=== PATIENT | female | born 1950 | race Two or more races ===

== ENCOUNTER 2016-09-11 00:42 | Inpatient (IN) | payer MEDICARE, OTHER ==
[~2016-09-11] VITALS: Ht 149.9 cm; Wt 65.3 kg
[2016-09-11 04:20] VITALS: BP 124/71
--- NOTE | 2016-09-11 04:20 | NUR ---
RN NOTES RECEIVED PATIENT FROM [facility] FOR DX ACUTE CHOLECYSTITIS. AO X 3, ABLE TO MAKE NEEDS KNOWN. NO ACUTE DISTRESS NOTED. DENIES ANY PAIN AT THIS TIME. DENIES ABDOMINAL PAIN. IV SITE PATENT, INTACT; FLUSHED. SKIN INTACT. ON LOW BED WITH BILATERAL UPPER SIDE RAILS UP. CALL LIGHT WITHIN EASY REACH. WILL CONTINUE TO MONITOR. WAITING FOR ORDERS FROM .
[2016-09-11] MEDS ORDERED: HUM10VIA SQ (04:35)
[2016-09-11] MEDS ORDERED: BENA40TA2 PO (04:35)
[2016-09-11] MEDS ORDERED: METF10002 PO (04:35)
[2016-09-11] MEDS ORDERED: ATOR40TA PO (04:35)
[2016-09-11] MEDS ORDERED: IBUP-1482 PO (04:35)
[2016-09-11] MEDS ORDERED: ASPI81TA2 PO (04:35)
[2016-09-11] MEDS ORDERED: CALC-20 PO (04:35)
[2016-09-11] MEDS ORDERED: IBUP-1955 PO (04:36)
[2016-09-11] MEDS ORDERED: MAG HYDROX/AL HYDROX/SIMETH 30 ML UDC PO PRN (05:00)
[2016-09-11] MEDS ORDERED: HYDROCODONE/APAP 5/325MG 1 EACH TABLET PO PRN (05:00)
[2016-09-11] MEDS ORDERED: ZOLPIDEM TARTRATE 5 MG TABLET PO PRN (05:00)
[2016-09-11] MEDS ORDERED: MAGNESIUM HYDROXIDE 30 ML UDC PO PRN (05:00)
[2016-09-11] MEDS ORDERED: Z GUARD REMEDY 2 OZ OINT TP PRN (05:00)
[2016-09-11] MEDS ORDERED: ACETAMINOPHEN 325 MG TABLET PO PRN (05:00)
[2016-09-11] MEDS ORDERED: IV D5W 50 ML IV ONE (05:27)
[2016-09-11] MEDS ORDERED: PIPERACILLIN /TAZOBACTAM 3.375 G VIAL IV ONE (05:27)
[2016-09-11] MEDS ORDERED: IV SET PRIMARY PUMP SET 1 EA INFUS.SET MC ONE (05:51)
[2016-09-11] MEDS ORDERED: IV D5/0.45 NACL 1,000 ML IV ONE (05:52)
[2016-09-11] MEDS ORDERED: SECONDARY IV SET 1 EA INFUS.SET MC ONE ×3 (05:52→13:22)
[2016-09-11] MEDS: IV D5/0.45 NACL 1,000 ML IV PRN (06:00)
[2016-09-11] MEDS: PIPERACILLIN /TAZOBACTAM 3.375 G in IV D5W 50 ML IV SCH ×4 (06:10→23:59)
[2016-09-11 06:40] LABS: BASOPHILS % (AUTO) 0.2 % (0.0-2.0); EOSINOPHILS # (AUTO) 0.1 /CMM (0.0-0.7); EOSINOPHILS % (AUTO) 1.4 % (0.0-6.0); HEMATOCRIT 33 % (33-45); HEMOGLOBIN 11.5 g/dL (11.5-14.8); LYMPHOCYTES # (AUTO) 1.6 /CMM (0.8-4.8); LYMPHOCYTES % (AUTO) 17.8 % (20.0-44.0); MEAN CORPUSCULAR HEMOGLOBIN 31 PG (26.0-33.0); MEAN CORPUSCULAR HGB CONC 35 g/dl (31.0-36.0); MEAN CORPUSCULAR VOLUME 88 fL (82-100); MONOCYTES % (AUTO) 11.1 % (2.0-12.0); NEUTROPHILS # (AUTO) 6.3 /CMM (1.8-8.9); NEUTROPHILS % (AUTO) 69.5 % (43.0-81.0); PLATELET COUNT (AUTO) 242 /CMM (150-450); RDW COEFFICIENT OF VARIATION 13.5 (11.5-15.0); RED BLOOD CELL COUNT(AUTO) 3.76 MIL/uL (4.0-5.2); WHITE BLOOD COUNT (AUTO) 9.1 K/uL (4.3-11.0)
--- NOTE | 2016-09-11 06:50 | NUR ---
RN NOTES PATIENT ASLEEP, AROUSABLE. RESPIRATIONS EVEN. NO SIGNS OF PAIN NOTED. DUE MEDS GIVEN WITH NO ASE NOTED. NEEDS ATTENDED. SAFETY PRECAUTIONS AND COMFORT MEASURES IN PLACE. WILL GIVE REPORT TO DAY SHIFT FOR CONTINUITY OF CARE.
[2016-09-11 07:09] LABS: BILIRUBIN,TOTAL 0.4 mg/dL (0.2-1.0); CALCIUM, SERUM 8.1 mg/dL (8.5-10.1); CREATININE 0.5 mg/dL (0.6-1.3); MAGNESIUM 1.9 mg/dL (1.8-2.4); PHOSPHORUS 3.6 mg/dL (2.5-4.9); POTASSIUM 3.4 mmol/L (3.5-5.1); TOTAL PROTEIN, SERUM 6.7 g/dL (6.4-8.2)
--- NOTE | 2016-09-11 07:30 | NUR ---
RN MS NOTES RECEIVED PATIENT IN BED, A/OX4, VERBALLY RESPONSIVE, NO APPARENT DISTRESS NOTED, DENIES SOB, DENIES PAIN. ON 2L O2 VIA NC SATURATING AT 99%. PATIENT IS NPO DUE TO DIAGNOSIS OF CHOLECYSTITS AND POSSIBLE SURGERY. IV LINE ON RIGHT AC PATENT. ALL NEEDS MET, CALL LIGHT WITHIN REACH.
[2016-09-11 08:00] VITALS: BP_SYST 131; BP_SYST 87; BP_DIAS 41; BP_DIAS 75
[2016-09-11] MEDS ORDERED: IBUPROFEN 600 MG TABLET PO PRN (09:00)
[2016-09-11] MEDS ORDERED: ATORVASTATIN 40 MG TABLET PO SCH (09:00)
[2016-09-11] MEDS: CALCIUM CARB 600MG /VIT D 1 EACH TABLET PO SCH (09:00)
[2016-09-11] MEDS: ASPIRIN 81 MG TAB.CHEW PO SCH (09:00)
[2016-09-11] MEDS ORDERED: DEXTROSE 50%-WATER 50 ML DISP.SYRIN IV PRN (09:00)
[2016-09-11] MEDS: BLOOD SUGAR DIAGNOSTIC 1 EACH STRIP IN SCH ×4 (09:41→22:21)
[2016-09-11] MEDS: BENAZEPRIL HCL 20 MG TABLET PO SCH (09:45)
[2016-09-11] MEDS: POTASSIUM CL. PREMIX PERIPHER. 50 ML IV SCH ×2 (09:58→11:25)
[2016-09-11] MEDS: PANTOPRAZOLE 40 MG VIAL IV SCH (09:58)
[2016-09-11] MEDS: MORPHINE SULFATE INJ 2 MG/ML DISP.SYRIN IV PRN ×2 (09:59→17:42)
--- NOTE | 2016-09-11 14:41 | NUR ---
RN MS NOTES PT IN BED, SEEN AND EXAMINED BY DR. CHOWDHURY, PLAN OF CARE DISCUSSED WITH PT AND DAUGHTER DOMITILA AT BEDSIDE, OPTIONS DISCUSSED WITH PT, PT STATED THAT SHE WOULD LIKE TO AVOID SURGERY FOR NOW, PER MD, WILL CONTINUE WITH ATB AND PAIN MANAGEMENT, KEEP PT NPO, PT AND DAUGHTER VERBALIZED UNDERSTANDING OF PLAN OF CARE.
[2016-09-11 16:27] VITALS: BP 83/48
[2016-09-11] MEDS: METFORMIN 500 MG TABLET PO SCH (17:00)
[2016-09-11] MEDS: INSULIN NPH/REG 70/30 MIX INJ 100 UNIT/ML VIAL SQ SCH (17:30)
--- NOTE | 2016-09-11 19:00 | NUR ---
RN MS NOTES PATIENT A/O X4, NO APPARENT DISTRESS, DENIES SOB, DENIES PAIN. IV LINE ON RIGHT AC PATENT, PATIENT NPO. ALL DUE MEDS GIVE, ALL NEEDS ATTENDED TO. WILL ENDORSE CARE TO PM SHIFT.
[2016-09-11 20:00] VITALS: BP 135/71
--- NOTE | 2016-09-11 20:00 | NUR ---
MS SEARCH ANALYST INITIAL NOTES SEEN PT IN BED AWAKE AND ALERT WITH FAMILY AT THE BEDSIDE, WITH IVF OF D51/2 NS AT 75ML/HR ON HER RIGHT AC PATENT AND INTACT. GUINEAN SPEAKING ONLY SO SON HELPED TO TRANSLATE, COMPLAINING OF N/V . SPOKE TO THEM THAT ANOTHER NURSE WILL ADMINISTER HER MEDS AND PT UNDERSTOOD WELL. DENIES ANY PAIN OR ANY DISCOMFORT AT THIS TIME. ENCOURAGE HER TO USED THE CALL LIGHT SYSTEM IF SHE NEEDS SOME HELP. KEPT HER WARM AND COMFORTABLE AT ALL TIMES. PLACE CALL LIGHT AT REACH. WILL CONTINUE TO MONITOR.
[2016-09-11] MEDS: ONDANSETRON HCL/PF 4 MG/2 ML VIAL IVP PRN (20:16)
[2016-09-11] MEDS: ATORVASTATIN 40 MG TABLET PO SCH (22:00)
--- NOTE | 2016-09-12 01:43 | NUR ---
MS CHERELLE NOTES C/O RIGHT UPPER QUADRANT PAIN , MORPHINE 2 MG GIVEN BY ANOTHER NURSE ROSANNA/RN ORDERED. WILL CONTINUE TO MONITOR. PLACE CALL LIGHT AT REACH.
[2016-09-12] MEDS: IV D5/0.45 NACL 1,000 ML IV PRN ×2 (01:48→16:42)
[2016-09-12] MEDS: MORPHINE SULFATE INJ 2 MG/ML DISP.SYRIN IV PRN ×3 (01:53→22:29)
--- NOTE | 2016-09-12 02:23 | NUR ---
MS SUPERINTENDENT CUSTODIAN JANITOR RE-ASSESSMENT NOTES CHECKED PT SLEEPING AT THIS TIME BUT AROUSES TO TOUCH, STATED BETTER. IVF STILL INFUSING AT THIS TIME. KEPT HER WARM AND COMFORTABLE AT ALL TIMES. PLACE CALL LIGHT AT REACH.
[2016-09-12] MEDS: PIPERACILLIN /TAZOBACTAM 3.375 G in IV D5W 50 ML IV SCH ×3 (05:23→17:07)
[2016-09-12] MEDS: BLOOD SUGAR DIAGNOSTIC 1 EACH STRIP IN SCH ×4 (06:22→22:17)
[2016-09-12] MEDS: INSULIN REGULAR, HUMAN 100 UNIT/ML 3 ML VIAL SQ PRN ×3 (06:25→22:18)
--- NOTE | 2016-09-12 07:05 | NUR ---
MS RN NOTE: RECEIVED PATIENT WHILE RESTING IN BED, A/OX 3. BREATHING EVEN AND UNLABORED ON 2L O2 VIA NC. NO DISTRESS/DISCOMFORT AT THIS TIME. PATIENT REMAINS NPO. ALL NEEDS ATTENDED TO, SAFETY MEASURES IN PLACE, WILL CONTINUE TO MONITOR.
[2016-09-12] MEDS: INSULIN NPH/REG 70/30 MIX INJ 100 UNIT/ML VIAL SQ SCH ×2 (07:30→16:46)
--- NOTE | 2016-09-12 07:30 | NUR ---
INSTRUMENT ROOM TECHNICIAN/CLOSING NOTES PT RESTING AFTER MORNING CARE DONE. BLOOD SUGAR CHECKED DONE ALSO. 198, 3 UNITS OF INSULIN GIVEN. NO SIGNS OF HYPER GLYCEMIA NOTED. ALL DUE MEDS GIVEN AND ALL NEEDS MET. SLEPT WELL AND ALL NEEDS MET. KEPT HER WARM AND COMFORTABLE AT ALL TIMES. PLACE CALL LIGHT AT REACH. ENDORSE TO AM NURSE MADDEN FOR CONTINUITY OF CARE.
[2016-09-12 08:00] VITALS: BP 136/71
[2016-09-12] MEDS: PANTOPRAZOLE 40 MG VIAL IV SCH (08:29)
[2016-09-12] MEDS: CALCIUM CARB 600MG /VIT D 1 EACH TABLET PO SCH (08:56)
[2016-09-12] MEDS: ASPIRIN 81 MG TAB.CHEW PO SCH (08:56)
[2016-09-12] MEDS: BENAZEPRIL HCL 20 MG TABLET PO SCH (08:56)
[2016-09-12] MEDS: METFORMIN 500 MG TABLET PO SCH ×2 (08:56→16:23)
--- NOTE | 2016-09-12 10:40 | NUR ---
MRI QUESTIONNAIRE COMPLETED, PATIENT SIGNED, AND PLACED IN CHART.
[2016-09-12] MEDS ORDERED: GADOVERSETAMIDE 5 MMOL/10 ML VIAL IJ ONE (12:01)
[2016-09-12] MEDS ORDERED: GADOVERSETAMIDE 2.5 MMOL/5 ML VIAL IJ ONE (12:01)
--- NOTE | 2016-09-12 12:26 | NUR ---
MRCP APPROVED, TECH WILL BE 30MIN. ORDER WILL TO MRI ABD W/WO INCLUDE MRCP.
--- NOTE | 2016-09-12 13:45 | NUR ---
PATIENT TRANSPORTED TO [facility] VIA WHEELCHAIR. PATIENT REMAINS STABLE, WILL CONTINUE TO MONITOR UPON RETURN.
--- NOTE | 2016-09-12 14:30 | NUR ---
MS RN NOTE: PATIENT RETURNED FROM [facility]. REMAINS STABLE, WILL CONTINUE TO MONITOR.
[2016-09-12 16:00] VITALS: BP 150/69
--- NOTE | 2016-09-12 16:30 | NUR ---
MS RN NOTE SURGEON, DR. JAUREGUI, CONSULTED WITH PATIENT. WILL AWAIT FURTHER ORDERS.
--- NOTE | 2016-09-12 17:00 | NUR ---
MS RN NOTE: BLOOD SUGAR CHECKED, READING 126. NO INSULIN COVERAGE REQUIRED. PATIENT STABLE, WILL CONTINUE TO MONITOR.
--- NOTE | 2016-09-12 18:12 | NUR ---
MS RN NOTE: PATIENT EXPLAINED SURGERY/PROCEDURE THAT IS SCHEDULED FOR TOMORROW. TRANSLATED IN [facility]. PATIENT HAS AGREED TO SURGERY AND SIGNED ALL CONSENT FORMS. SURGERY PACKET PLACED IN CHART, WILL CONTINUE TO MONITOR.
--- NOTE | 2016-09-12 18:30 | NUR ---
MS RN NOTE: PATIENT RESTING IN BED, A/OX 4. BREATHING EVEN AND UNLABORED ON ROOM AIR. NO SOB, NO DISTRESS AT THIS TIME. PATIENTS NEEDS ATTENDED TO, SAFETY MEASURES IN PLACE, WILL ENDORSE TO INFORMATICS EDUCATOR FOR CHRISSIE.
[2016-09-12 19:13] LABS: INR 0.94 (0.87-1.13)
[2016-09-12 19:53] LABS: APPEARANCE,URINE CLEAR (CLEAR); BILIRUBIN,URINE NEGATIVE (NEGATIVE); BLOOD, URINE TRACE-INTA Ery/uL (NEGATIVE); COLOR,URINE YELLOW (YELLOW); KETONES,URINE TRACE (NEGATIVE); LEUKOCYTE ESTERASE ,URINE NEGATIVE (NEGATIVE); NITRITE, URINE NEGATIVE (NEGATIVE); PH,URINE 6.5 (5.0-8.0); PROTEIN,URINE NEGATIVE (NEGATIVE); UGLUCOSE NEGATIVE (NEGATIVE); UROBILINOGEN,URINE 0.2 EU/dL (0.2)
[2016-09-12 20:00] VITALS: BP 139/73
[2016-09-12 20:03] LABS: BACTERIA,URINE Rare /HPF (None Seen); SQUAMOUS EPITHELIAL CELL,UR Few /HPF (None Seen); WBC,URINE 0-2 /HPF (0-3)
[2016-09-12] MEDS: ATORVASTATIN 40 MG TABLET PO SCH (21:42)
--- NOTE | 2016-09-12 22:17 | NUR ---
INBOUND SALES REPRESENTATIVE/NOTES' BLOOD SUGAR CHECKED DONE 191, 3 UNITS OF INSULIN GIVEN MANJULA SQ ORDERED. PT NPO AT THIS TIME BUT HAVE IVF OF D5 1/2 NS AT 75ML/HR. NO SIGNS OF HYPER GLYCEMIA NOTED. KEPT HER WARM AND COMFORTABLE AT ALL TIMES. WILL CONTINUE TO MONITOR. P ALSO ASKING FOR HER PAIN MEDS. I TOLD HER THAT ANOTHER NURSE WILL ADMINISTER. AND PT SAID "OK'.
--- NOTE | 2016-09-12 22:32 | NUR ---
MORPHINE 2MG GIVEN ORDERED FOR C/O SEVERE LOWER ABD PAIN. WILL CONT TO MONITOR
[2016-09-13] MEDS: PIPERACILLIN /TAZOBACTAM 3.375 G in IV D5W 50 ML IV SCH ×4 (00:15→17:04)
[2016-09-13] MEDS: BLOOD SUGAR DIAGNOSTIC 1 EACH STRIP IN SCH ×4 (06:06→21:20)
[2016-09-13] MEDS: INSULIN REGULAR, HUMAN 100 UNIT/ML 3 ML VIAL SQ PRN ×4 (06:08→21:16)
--- NOTE | 2016-09-13 07:00 | NUR ---
FREIGHT FLAGMAN/CLOSING NOTES BLOOD SUGAR CHECKED DONE, 203, 4 UNITS OF INSULIN GIVEN MANJULA SQ ORDERED, VITAL SIGNS STABLE. CHECKLIST DONE AND PT AWARE OF HER SURGERY. STABLE MANJULA THE NIGHT AND SLEPT WELL. ALL DUE MEDS GIVEN AND ALL NEEDS MET. KEPT HER WARM AND COMFORTABLE AT ALL TIMES. ENDORSE TO AM NURSE.
--- NOTE | 2016-09-13 07:05 | NUR ---
MS RN NOTE: RECEIVED PATIENT WHILE RESTING IN BED, A/OX 4. PATIENT BREATHING EVEN AND UNLABORED ON ROOM AIR. NO SOB, NO DISTRESS. PATIENT NPO FOR SURGERY THIS MORNING. CONSENTS IN PLACE, CHECKLIST COMPLETE. PATIENTS NEEDS ATTENDED TO, SAFETY MEASURES IN PLACE, WILL CONTINUE TO MONITOR.
[2016-09-13] MEDS ORDERED: BUPIVACAINE MPF 0.5% W/EPI INJ 30 ML VIAL ONE (07:09)
[2016-09-13] MEDS: INSULIN NPH/REG 70/30 MIX INJ 100 UNIT/ML VIAL SQ SCH ×2 (07:30→17:02)
--- NOTE | 2016-09-13 07:37 | NUR ---
MS RN NOTE: PATIENT TRANSPORTED DOWNSTAIRS VIA BED FOR SURGERY. PATIENT REMAINS STABLE, WILL CONTINUE TO MONITOR UPON RETURN.
[2016-09-13 08:00] VITALS: BP 133/71
[2016-09-13] MEDS ORDERED: LIDOCAINE HCL/PF 1% 30 ML SDV ONE (08:10)
[2016-09-13] MEDS ORDERED: BUPIVACAINE MPF W/EPI 0.25% 30 ML VIAL ONE (08:10)
[2016-09-13] MEDS: METFORMIN 500 MG TABLET PO SCH ×2 (09:00→16:59)
[2016-09-13] MEDS ORDERED: ROCURONIUM BROMIDE 50 MG/5 ML ONE (09:35)
[2016-09-13] MEDS ORDERED: DESFLURANE 240 ML BOTTLE IH ONE (09:41)
[2016-09-13] MEDS ORDERED: CELLULOSE,OXIDIZED 1 PKT EACH MC ONE (09:54)
[2016-09-13] MEDS ORDERED: NEOMY SULF/BACITRAC ZN/POLY 15 GM TUBE TP ONE (10:38)
[2016-09-13] MEDS ORDERED: IV LR 1000 ML 1,000 ML ONE (11:15)
[2016-09-13] MEDS: MORPHINE SULFATE INJ 2 MG/ML DISP.SYRIN IV PRN (11:40)
[2016-09-13] MEDS: BENAZEPRIL HCL 20 MG TABLET PO SCH (11:53)
[2016-09-13] MEDS: CALCIUM CARB 600MG /VIT D 1 EACH TABLET PO SCH (11:53)
[2016-09-13] MEDS: ASPIRIN 81 MG TAB.CHEW PO SCH (11:53)
[2016-09-13] MEDS: PANTOPRAZOLE 40 MG VIAL IV SCH (11:54)
--- NOTE | 2016-09-13 12:05 | NUR ---
MS RN NOTE: PATIENT RETURNED FROM SURGERY VIA BED. VITAL SIGNS STABLE. SURGICAL SITES DRY AND DRESSINGS INTACT. PATIENT'S ORDERS NOTED. WILL CONTINUE TO MONITOR PATIENT.
--- NOTE | 2016-09-13 12:10 | NUR ---
MS RN NOTE: PER SEWING PATTERN LAYOUT TECHNICIAN, PAT, PATIENT'S FRONT TOOTH FELL OUT UPON INTUBATION IN THE OR. TOOTH COLLECTED AND PLACED IN A CONTAINER. FAMILY MADE AWARE AND HANDED THE CONTAINER WITH THE TOOTH. NO COMPLICATIONS NOTED WITH PATIENTS FRONT TOOTH. WILL CONTINUE TO MONITOR.
--- NOTE | 2016-09-13 12:15 | NUR ---
MS RN NOTE: PATIENTS BLOOD SUGAR CHECKED, READING 236, COVERED WITH 4 UNITS INSULIN. WILL CONTINUE TO MONITOR.
[2016-09-13] MEDS ORDERED: IV SET PRIMARY PUMP SET 1 EA INFUS.SET MC ONE (12:19)
[2016-09-13] MEDS ORDERED: IBUPROFEN 400 MG TABLET PO ONE (12:30)
--- NOTE | 2016-09-13 12:30 | NUR ---
MS RN NOTE: PATIENTS IV ON RIGHT AC IS INFILTRATED. IV REMOVED AND SITE SECURED WITH GAUZE AND TAPE. PATIENT HAS ANOTHER IV ON RIGHT HAND, 20 GAUGE, INTACT AND PATENT. IV FLUIDS RUNNING, WILL CONTINUE TO MONITOR.
[2016-09-13] MEDS: ACETAMINOPHEN 325 MG TABLET PO SCH ×2 (12:34→21:09)
[2016-09-13] MEDS: ONDANSETRON HCL/PF 4 MG/2 ML VIAL IVP PRN (12:34)
[2016-09-13] MEDS: IV LR 1000 ML 1,000 ML IV PRN ×2 (12:34→18:26)
[2016-09-13] MEDS: GABAPENTIN 300 MG CAPSULE PO SCH ×2 (12:34→21:09)
[2016-09-13] MEDS ORDERED: ANCEF 1 GM/50 ML D5W IV ONE ×2 (14:00)
[2016-09-13] MEDS ORDERED: SECONDARY IV SET 1 EA INFUS.SET MC ONE (14:51)
[2016-09-13 16:00] VITALS: BP 127/69
--- NOTE | 2016-09-13 17:00 | NUR ---
MS RN NOTE: PATIENTS BLOOD SUGAR CHECKED, READING 231. COVERED WITH 4 UNITS INSULIN. NPH INSULIN NOT ADMINISTERED, PATIENT HAS METFORMIN ORALLY AND ONLY HAS CLEAR LIQUID DIET. PATIENT REQUESTING TO HOLD OFF ON NPH INSULIN AT THIS TIME. PATIENT REMAINS STABLE, WILL CONTINUE TO MONITOR.
--- NOTE | 2016-09-13 18:47 | NUR ---
MS RN NOTE: PATIENT RESTING IN BED, A/OX 3. BREATHING EVEN AND UNLABORED ON 3L O2 VIA NC. NO DISTRESS/DISCOMFORT AT THIS TIME. PATIENTS NEEDS ATTENDED TO, SAFETY MEASURES IN PLACE, WILL ENDORSE TO MANAGER DEMAND FOR CHRISSIE.
--- NOTE | 2016-09-13 19:00 | NUR ---
RN NOTE RECEIVED REPORT. PT AAOX3, NO S/S OR C/O ANY PAIN OR DISCOMFORT AT THIS TIME. ON NC 3L. BREATHING EVEN AND NON-LABORED. IV INTACT AND PATENT, TOLERATING FLUIDS WELL. FAMILY AT BEDSIDE. CALL LIGHT I NREACH, WILL CONT TO MONITOR.
[2016-09-13 20:00] VITALS: BP 123/60
[2016-09-13] MEDS: ATORVASTATIN 40 MG TABLET PO SCH (21:09)
[2016-09-13] MEDS: IBUPROFEN 400 MG TABLET PO SCH (21:09)
[2016-09-14] MEDS: PIPERACILLIN /TAZOBACTAM 3.375 G in IV D5W 50 ML IV SCH ×4 (00:36→18:27)
--- NOTE | 2016-09-14 01:00 | NUR ---
RN NOTE PT RESTING COMFORTABLY IN BED WITH EYES CLOSED. NO DISTRESS NOTED AT THIS TIME. WILL MONITOR.
[2016-09-14] MEDS: IBUPROFEN 400 MG TABLET PO SCH ×3 (04:42→21:03)
[2016-09-14] MEDS: ACETAMINOPHEN 325 MG TABLET PO SCH ×3 (04:42→21:04)
[2016-09-14] MEDS: GABAPENTIN 300 MG CAPSULE PO SCH ×3 (04:42→21:03)
[2016-09-14] MEDS: IV LR 1000 ML 1,000 ML IV PRN (04:43)
[2016-09-14] MEDS: BLOOD SUGAR DIAGNOSTIC 1 EACH STRIP IN SCH ×4 (05:35→21:04)
[2016-09-14] MEDS: INSULIN NPH/REG 70/30 MIX INJ 100 UNIT/ML VIAL SQ SCH ×2 (05:40→18:08)
--- NOTE | 2016-09-14 06:19 | NUR ---
RN NOTE NO SIGNIFICANT CHANGES THIS SHIFT . PT AAOX4, NO S/S OR C/O ANY PAIN/DISCOMFORT AT THIS TIME. BREATHING NON-LABORED AND EVEN. NO SIGNS OF BLEEDING AT SX SITE. IV INTACT AND PATENT, TOLERATING FLUIDS WELL. CALL LIGHT IN REACH. WILL F/U WITH DAY SHIFT FOR CHRISSIE. PT AMBULATED TO BATHROOM AND SAT IN CHAIR THIS SHIFT. GOAL MET.
[2016-09-14] MEDS: INSULIN REGULAR, HUMAN 100 UNIT/ML 3 ML VIAL SQ PRN ×4 (06:48→21:07)
--- NOTE | 2016-09-14 07:40 | NUR ---
RECEIVED PT. ALERT AND ORIENTED X3-INCISIONS INTACT,NO COMPLAINTS OFFERED.IV INFUSING.VS STABLE.
[2016-09-14 08:00] VITALS: BP 132/72
[2016-09-14] MEDS: CALCIUM CARB 600MG /VIT D 1 EACH TABLET PO SCH (09:54)
[2016-09-14] MEDS: PANTOPRAZOLE 40 MG VIAL IV SCH (09:54)
[2016-09-14] MEDS: METFORMIN 500 MG TABLET PO SCH ×2 (09:54→18:09)
[2016-09-14] MEDS: BENAZEPRIL HCL 20 MG TABLET PO SCH (09:55)
[2016-09-14] MEDS: ASPIRIN 81 MG TAB.CHEW PO SCH (09:55)
--- NOTE | 2016-09-14 11:34 | NUR ---
DR. JAUREGUI,DR. RICCI IN TO SEE PT. IV HEP LOCKED.
--- NOTE | 2016-09-14 15:00 | NUR ---
FAMILY IN TO VISIT.
[2016-09-14 16:00] VITALS: BP 148/78
--- NOTE | 2016-09-14 18:00 | NUR ---
NO CHANGE IN STATUS.
--- NOTE | 2016-09-14 19:30 | NUR ---
RN NOTE RECEIVED REPORT. PT AAOX3, NO S/S OR C/O ANY PAIN OR DISCOMFORT AT THIS TIME. ON NC 3L. BREATHING EVEN AND NON-LABORED. IV INTACT AND PATENT, TOLERATING FLUIDS WELL. FAMILY AT BEDSIDE. NO SIGNS OF BLEEDING. CALL LIGHT IN REACH, WILL CONT TO MONITOR.
[2016-09-14] MEDS: ATORVASTATIN 40 MG TABLET PO SCH (21:04)
[2016-09-15] MEDS: PIPERACILLIN /TAZOBACTAM 3.375 G in IV D5W 50 ML IV SCH ×2 (00:48→05:21)
--- NOTE | 2016-09-15 03:00 | NUR ---
RN NOTE PT RESTING COMFORATBLY IN BED. NO SIGNS OF DISTRESS. WILL MONITOR.
[2016-09-15] MEDS: IBUPROFEN 400 MG TABLET PO SCH (04:33)
[2016-09-15] MEDS: ACETAMINOPHEN 325 MG TABLET PO SCH (04:33)
[2016-09-15] MEDS: GABAPENTIN 300 MG CAPSULE PO SCH (04:34)
--- NOTE | 2016-09-15 06:32 | NUR ---
RN NOTE BS CHECK 61, ORANGE JUICE PROVIDED. RECHECK 94. NO INSULIN COVERAGE AT THIS TIME. WILL MONITOR
--- NOTE | 2016-09-15 06:37 | NUR ---
RN NOTE NO SIGNIFICANT CHANGES SINCE PREVIOUS SHIFT. PT AAOX4, NO C/O PAIN/DISCOMFORT. IV INTACT AND PATENT S/L. NO DISTRESS NOTED AT THIS TIME. WILL F/U WITH DAY SHIFT FOR CHRISSIE. CALL LIGHT IN REACH.
[2016-09-15] MEDS: BLOOD SUGAR DIAGNOSTIC 1 EACH STRIP IN SCH (06:46)
[2016-09-15] MEDS: INSULIN NPH/REG 70/30 MIX INJ 100 UNIT/ML VIAL SQ SCH (06:53)
[2016-09-15 08:00] VITALS: BP 148/91
[2016-09-15 08:24] VITALS: BP 148/91
[2016-09-15] MEDS: CALCIUM CARB 600MG /VIT D 1 EACH TABLET PO SCH (09:31)
[2016-09-15] MEDS: METFORMIN 500 MG TABLET PO SCH (09:32)
[2016-09-15] MEDS: PANTOPRAZOLE 40 MG VIAL IV SCH (09:32)
[2016-09-15] MEDS: ASPIRIN 81 MG TAB.CHEW PO SCH (09:32)
[2016-09-15 09:33] VITALS: BP 148/91
[2016-09-15] MEDS: BENAZEPRIL HCL 20 MG TABLET PO SCH (09:33)
--- NOTE | 2016-09-15 11:13 | NUR ---
Discharge of patient via wheelchair with spouse and EQUIPMENT SERVICE TECHNICIAN. Given prescription. IV site discontinued. No erythema, swelling, drainage. 20G catheter intact. Instruction to follow up with surgeon in one week. Given phone number. Instruction to follow up with primary doctor in 2 weeks. Patient and spouse verbalize understanding.
== END 2016-09-15 11:00 | disposition home or self-care (01) | DRG 419 ==
LOC: MED 04:21
PROVIDERS: ADMIT Family Medicine; ATTEND Family Medicine
PROC: 0DB78ZX Excision of Stomach, Pylorus, Via Natural or Artificial Opening Endoscopic, Diagnostic (ICD-10-PCS; 2016-09-13)
PROC: 0FT44ZZ Resection of Gallbladder, Percutaneous Endoscopic Approach (ICD-10-PCS; principal; 2016-09-13 07:35)
DX: K80.10 Calculus of gallbladder with chronic cholecystitis without obstruction (principal); I10 Essential (primary) hypertension; E78.5 Hyperlipidemia, unspecified; E11.9 Type 2 diabetes mellitus without complications; E88.09 Other disorders of plasma-protein metabolism, not elsewhere classified; Z83.3 Family history of diabetes mellitus; R10.9 Unspecified abdominal pain; Z68.29 Body mass index [BMI] 29.0-29.9, adult; K44.9 Diaphragmatic hernia without obstruction or gangrene
CPT/HCPCS: 36415; 71010-TC; 74183-TC; 76700-TC; 80053-TC; 81000-TC; 82962-TC; 83735-TC; 84100-TC; 85025-TC; 85610-TC; 85730-TC; 86850-TC; 87040-TC; 87081-TC; 88304-TC; 88305-TC; 88313-TC; 88342; A6402; A9579; C9113; J0690; J1100; J1815; J1885; J2270; J2405; J2543; J2704; J3480; J3490; J7060; J7120; Z7610